=== PATIENT | female | born 1970 | race Hispanic/Latino ===

== ENCOUNTER → 2022-04-29 | Outpatient (CLI) | payer OTHER | END | disposition home or self-care (01) | LOC: SHCH 08:22 | PROVIDERS: ATTEND Internal Medicine Cardiovascular Disease | DX: R01.1 Cardiac murmur, unspecified (principal) | CPT/HCPCS: 93306 ==

== ENCOUNTER → 2022-08-25 | Outpatient (CLI) | payer OTHER ==
[2022-08-25 16:57] LABS: CREATININE 0.9 mg/dL (0.5-1.5)
== END | disposition home or self-care (01) ==
LOC: LAB 13:00
PROVIDERS: ATTEND Internal Medicine Cardiovascular Disease
DX: R07.9 Chest pain, unspecified (principal)
CPT/HCPCS: 36415; 82565; 84520

== ENCOUNTER 2024-03-18 17:28 | Emergency (ER) | payer BC, OTHER ==
[~2024-03-18] VITALS: Ht 154.9 cm; Wt 113.9 kg
--- NOTE | 2024-03-18 19:11 | NUR ---
CALLED FOR PT TO MOVE TO [facility]; NO RESPONSE; PT NOT FOUND IN LOBBY.
--- NOTE | 2024-03-18 19:38 | ERN ---
ED Note History of Present Illness Stated Complaint: RASH Chief Complaint: Skin Rash/Abscess Time Seen by MD: 17:41 Time Seen by Midlevel: 17:46 Dictation: 53-year-old female with a history of diabetes coming in complaining of a rash and itchiness that started four days ago under her breast area, bilaterally. Denies recently being sick. Denies any fever, nausea, vomiting or diarrhea. Allergies: Coded Allergies: ketorolac (Verified Allergy, Unknown, 05/13/22) latex (Verified Allergy, Unknown, 05/13/22) Home Meds Active Scripts Clotrimazole/Betameth Dip/Zinc (Dermacinrx Therazole Bryan) 1 %-0.05 %-20 % Combo..pkg, 1 APPL TP DAILY for 30 Days, #270 GM 0 Refills Prov:DANIELLE ZURITA NP 03/18/24 Past Medical History Past Medical History: Asthma, COPD, Diabetes-Type II, High Cholesterol Surgical History: Appendectomy, Hysterectomy, Cholecystectomy, BTL Review of System Dictation Constitutional: Negative for fever,chills, and weight loss Eyes: Negative for injury, pain,redness, and discharge ENT: Negative for injury,pain or swelling Cardiovascular: Negative for chest pain, palpitations, and edema Respiratory: Negative for shortness of breath, cough, and wheezing, Abdomen/GI: Negative for abdominal pain, nausea, vomiting, diarrhea, and constipation Back: Negative for injury and pain : Negative for injury, bleeding and discharge MS/Extremity: Negative for injury and deformity Skin: Positive for rash underneath both breasts, itching Neuro: Negative for headache, weakness, numbness, tingling, and seizure Psych: Negative for suicide ideation, homicidal ideation, and hallucinations Review of Systems: was completed Initial Vital Sign VS Vital Signs Date Time Temp Pulse Resp B/P (MAP) Pulse Ox O2 Delivery O2 Flow Rate FiO2 03/18/24 17:32 98.2 81 16 157/91 96 Room Air 0 03/18/24 20:50 21 Physical Exam Dictation General: awake, alert, NAD Head/Face: Normocephalic, atraumatic Eyes: PERRL, EOMI, vision at baseline ENT: oral cavity clear, TMs clear, no signs of infection Neck: Trachea midline, supple, no nuchal rigidity Cardiovascular: RRR, normal S1/S2, No MRGs, no JVD Respiratory: CTAB, no respiratory distress, No rales or wheezes Abdomen: Soft, non-tender, non-distended, normal bowel sounds, no guarding or rebound. Skin: Moist rash underneath bilateral breasts, scaly edges, dark in center. MS/Extremity: Pulses equal, no cyanosis, neurovascular intact, FROM Neuro: COAx4, GCS 15, strength 5/5, CN 2-12 intact, normal cerebellar exam, normal gait, Psych: Normal behavior, mood, and affect normal ED Course ED Course Orders Procedure Category Date Status Time Diphenhydramine Hcl PHA 03/18/24 Complete (Benadryl Inj) 19:25 Nystatin 15 Gm Powder PHA 03/18/24 Complete (Nystop 15 Gm Powd 20:00 Current Medications Medications (Trade) Dose Ordered Sig/Solomon Route PRN Reason Start Time Stop Time Status Last Admin Dose Admin Diphenhydramine HCl (BENAdryl INJ) 50 mg ONCE STAT IM 03/18/24 19:25 03/18/24 19:26 DC 03/18/24 20:42 Nystatin (NystOP 15 GM POWDER) 1 appl ONCE ONCE TP 03/18/24 20:00 03/18/24 20:01 DC 03/18/24 20:42 Vital Signs Date Time Temp Pulse Resp B/P (MAP) Pulse Ox O2 Delivery O2 Flow Rate FiO2 03/18/24 20:50 97.9 87 18 149/86 98 Room Air* 0 21 03/18/24 17:32 98.2 81 16 157/91 96 Room Air 0 Medical Decision Making MDM MDM: 53-year-old female with a history of diabetes coming in complaining of a rash and itchiness that started four days ago under her breast area, bilaterally. Denies recently being sick. Denies any fever, nausea, vomiting or diarrhea. Discussed patient is a possibly be a fungal infection or bacterial. We will give her ointment in powder to apply. Educated to follow up with PCP to return if symptoms worsen. Patient verbalized understanding, answered all questions. Differential diagnosis: Allergic reaction, impetigo, tinea corporis Rationale: Tests considered and ordered secondary to shared decision making include: Previous outside records reviewed: Old ER visits. Risk of complication and/or morbidity or mortality of patient management: None Medications-Per medication reconciliation Need for hospitalization: Patient does not meet criteria for hospitalization. Need for emergency major/minor surgery: No There are no social concerns with this patient. Prescription drug management Prescriptions will include symptomatic care Patient's prior external medical records from other ER visits were reviewed by me as indicated. Prior testing and results from previous visits were reviewed. Prior tests were taken into account with medical decision making and resource utilization, independent historian/historians were used to obtain complete medical history. I independently interpreted the test that were performed, results were reviewed by me and considered findings on radiology if ordered. Medical management and examination interpretation discussions were had by me with other qualified healthcare professionals as indicated for the patient's care. DX & DISP Disposition: Discharge Departure Impression: Primary Impression: Erythrasma Additional Impression: Thais infection Condition: Stable Scripts Clotrimazole/Betameth Dip/Zinc (Dermacinrx Therazole Bryan) 1 %-0.05 %-20 % Combo..pkg 1 APPL TP DAILY for 30 Days, #270 GM 0 Refills Prov: DANIELLE ZURITA NP 03/18/24 Referrals: BART SAM DO (PCP) Time of Disposition: 19:58 I have reviewed the case, and I agree with, Diagnosis and Plan ATTESTATION BY PHYSICIAN I PERFORMED THE SUBSTANTIVE PORTION OF THE VISIT. I HAVE REVIEWED AND PERSONALLY MADE AND APPROVED THE MANAGEMENT PLAN THAT IS DOCUMENTED IN THE NOTE BY MYSELF FOR THE A PP. I ACKNOWLEDGED FOR RESPONSIBILITY FOR THE PATIENT'S MANAGEMENT PLAN. DANIELLE ZURITA NP Mar 18, 2024 19:38 CHANELLE LYNN MD Mar 19, 2024 05:19
[2024-03-18] MEDS ORDERED: CLOT135C TP (19:58)
[2024-03-18] MEDS: DiphenhydrAMINE HCL 50 MG/ML VIAL IM STA (20:42)
[2024-03-18] MEDS: NYSTatin 15 GM POWDER TP ONE (20:42)
[2024-03-18 20:50] VITALS: BP 149/86; PULSE 87; RESP 18; TEMP 97.8; O2SAT 98
== END 2024-03-18 20:54 | disposition home or self-care (01) ==
LOC: EDH 17:28
DX: L08.1 Erythrasma (principal); B37.9 Candidiasis, unspecified; E11.9 Type 2 diabetes mellitus without complications; E78.00 Pure hypercholesterolemia, unspecified; J44.89 Other specified chronic obstructive pulmonary disease; Z79.899 Other long term (current) drug therapy; Z90.49 Acquired absence of other specified parts of digestive tract; Z90.710 Acquired absence of both cervix and uterus
CPT/HCPCS: 99284; 96372; J1200